=== PATIENT | male | born 2000 | race Hispanic/Latino ===

== ENCOUNTER 2024-03-03 11:07 | Emergency (ER) | payer OTHER ==
[2024-03-03] MEDS ORDERED: ALBUTEROL 2.5 MG/3 ML NEB SOL ONE (11:50)
[2024-03-03] MEDS ORDERED: IPRATROPIUM BROM 0.5MG/2.5ML ONE (11:50)
[2024-03-03] MEDS ORDERED: predniSONE 20 MG TAB ONE (11:51)
[2024-03-03] MEDS ORDERED: METHYLPREDNISOLONE 125 MG INJ ONE (11:51)
[2024-03-03] MEDS ORDERED: FAMOTIDINE 20 MG/2 ML VIAL IV ONE (11:52)
[2024-03-03] MEDS ORDERED: NA CHLORIDE 0.9% 1,000 ML ONE (11:52)
[2024-03-03] MEDS ORDERED: DIPHENHYDRAMINE 50 MG/ML VIAL ONE (11:52)
[2024-03-03 12:14] LABS: Absolute Lymphocytes (CBC) 0.9 K/uL (0.7-4.9); Absolute Monocytes 0.7 K/uL (0.1-1.3); Absolute Neutrophil 17.6 K/uL (1.8-8.0); Basophils % 0.2 % (0-1.3); Hematocrit 40.5 % (39.6-49.0); Hemoglobin 13.5 g/dL (13.6-17.9); Lymphocytes % 4.5 % (15.3-44.8); MCH 29.1 pg (27.0-35.0); MCHC 33.3 g/dL (32.0-36.0); MCV 87.3 fL (80-100); MPV 7.7 fL (7.6-11.3); Monocytes % 3.4 % (3.3-12.3); Neutrophils % 91.9 % (41.7-73.7); Platelets 349 thou/uL (152-406); RBC Red Blood Cell Count 4.64 M/uL (4.33-5.43); Red Cell Distribution Width 13.6 % (12.1-15.2)
[2024-03-03 12:35] LABS: ALT/SGPT 18 U/L (16-61); Albumin 3.6 g/dL (3.4-5.0); Albumin/Globulin Ratio 0.9 (1.1-1.8); Alkaline Phosphatase 73 U/L (45-117); Anion Gap 9.5 mEq/L (5.0-15.0); BUN Blood Urea Nitrogen 13 mg/dL (7-18); Bicarbonate 27 mEq/L (21-32); Bilirubin Total 0.6 mg/dL (0.2-1.0); Globulin 3.9 g/dL (2.3-3.5); Glomerular Filtration Rate 126 ml/min (=/>90); Glucose Level 108 mg/dL (74-106); Potassium 3.5 mEq/L (3.5-5.1); Protein, Total 7.5 g/dL (6.4-8.2); Sodium Level 137 mEq/L (136-145)
[2024-03-03 12:36] LABS: AST/SGOT < 10 U/L (15-37)
[2024-03-03 13:11] LABS: Band Neutrophils 1 % (0-1); Differential Total Cells Count 100; Lymphocytes 4 % (15-42); Monocytes 2 % (0-10); Segmented Neutrophils 92 % (40-80)
[2024-03-03 13:12] LABS: Atypical Lymphocytes 1 %; Blood Morphology Comment NOT SEEN (NOT SEEN); Platelet Estimate ADEQ
--- NOTE | 2024-03-03 13:59 | ER ---
Nurse's Notes [facility] Name: Jonathon Donnelly Age: 23 yrs Sex: Male : 2000 Arrival Date: 03/03/2024 Time: 11:07 Bed 9 Private MD: Diagnosis: Urticaria, unspecified;Idiopathic urticaria;Allergic urticaria;Elevated white blood cell count Presentation: 03/03 11:19 Chief complaint: Patient states: Dealing with allergic reaction since night. ll1 Seen at Urgent Care twice, keeps returning even with medications. Coronavirus screen: Client denies travel out of the [place] in the last 14 days. At this time, the client does not indicate any symptoms associated with coronavirus-19. Ebola Screen: Patient denies travel to an Ebola-affected area in the 21 days before illness onset. Onset: The symptoms/episode began/occurred last week. Anaphylaxis evaluation, no signs or symptoms of anaphylaxis were noted. Initial Sepsis Screen: Does the patient meet any 2 criteria? No. Patient's initial sepsis screen is negative. Does the patient have a suspected source of infection? No. Patient's initial sepsis screen is negative. Risk Assessment: Do you want to hurt yourself or someone else? Patient reports no desire to harm self or others. Onset of symptoms was February 26, 2024. 11:19 Method Of Arrival: Ambulatory 1 11:19 Acuity: DEISI 3 ll1 Triage Assessment: 11:19 General: Appears uncomfortable, Behavior is calm, cooperative, appropriate for age. ll1 Pain: Denies pain. EENT: Reports throat closing off/on, none now. Derm: Reports rash with itching to body off/on. Historical: - Allergies: 11:17 No Known Allergies; ll1 - PMHx: 11:17 Hypertensive disorder; ll1 - PSHx: 11:17 wisdom teeth; ll1 - Immunization history:: Adult Immunizations up to date. - Infectious Disease History:: Denies. - Social history:: Smoking status: Patient denies any tobacco usage or history of. Screenin:16 [facility] ED Fall Risk Assessment (Adult) History of falling in the last 3 months, hb including since admission No falls in past 3 months (0 pts) Confusion or Disorientation No (0 pts) Intoxicated or Sedated No (0 pts) Impaired Gait No (0 pts) Mobility Assist Device Used No (0 pt) Altered Elimination No (0 pt) Score/Fall Risk Level 0 - 2 = Low Risk Oriented to surroundings, Maintained a safe environment, Educated pt \T\ family on fall prevention, incl call for assistance when getting out of bed. Abuse screen: Denies threats or abuse. Denies injuries from another. Nutritional screening: No deficits noted. Tuberculosis screening: No symptoms or risk factors identified. Assessment: 12:15 General: Appears in no apparent distress. Behavior is calm, cooperative. Pain: Pain hb currently is 5 out of 10 on a pain scale. Neuro: Level of Consciousness is awake, alert, obeys commands, Oriented to person, place, time, situation. Cardiovascular: Patient's skin is warm and dry. Respiratory: Airway is patent Respiratory effort is even, unlabored, Respiratory pattern is regular, symmetrical. GI: No signs and/or symptoms were reported involving the gastrointestinal system. : No signs and/or symptoms were reported regarding the genitourinary system. EENT: Reports pain when swallowing. Derm: Skin is pink, warm \T\ dry. Rash noted that is diffuse hives. 13:35 Reassessment: No changes from previously documented assessment. Patient and/or family ll1 updated on plan of care and expected duration. Pain level reassessed. Patient is alert/active/playful, equal unlabored respirations, skin warm/dry/pink. Vital Signs: 11:19 BP 132 / 91; Pulse 116; Resp 17; Temp 97.4; Pulse Ox 99% ; Weight 86.18 kg; Height 5 ll1 ft. 11 in. ; Pain 6/10; 14:15 BP 122 / 59; Pulse 83; Resp 16; Pulse Ox 99% ; Pain 0/10; ll1 11:19 Body Mass Index 26.50 (86.18 kg, 180.34 cm) ll1 11:19 Pain Scale: Adult ll1 14:15 Pain Scale: Adult ll1 ED Course: 11:11 Patient arrived in ED. mg5 11:11 Floyd Oakes MD is Attending Physician. rn 11:17 Arm band placed on. ll1 11:18 Attending Physician role handed off by Floyd Oakes MD rn 11:18 Reji Bowen MD is Attending Physician. rn 11:20 Triage completed. ll1 12:01 Patient placed in an exam room, on a stretcher. ll1 12:10 Inserted saline lock: 20 gauge in right antecubital area, using aseptic technique. hb Blood collected. Flushed with 10 mL NS. 12:14 Comprehensive Metabolic Panel Sent. hb 12:14 CBC with Diff Sent. hb 12:16 Patient has correct armband on for positive identification. Provided Education on: hb tests, result times . 12:16 No provider procedures requiring assistance completed. hb 13:31 Jennifer Williamson, AAMIR is Primary Nurse. ll1 13:56 Sameer Leon MD is Referral Physician. migdalia 14:17 IV discontinued, intact, bleeding controlled, No redness/swelling at site. Pressure ll1 dressing applied. Administered Medications: 12:14 Drug: NS 0.9% IV 1000 ml IV at 1000 ml once; to be given as a bolus over 60 minutes hb Route: IV; Rate: 1000 ml; Site: right antecubital; 13:35 Follow up: Response: No adverse reaction; IV Status: Completed infusion; IV Intake: ll1 1000ml 12:14 Drug: MethylPrednisoLONE IVP 125 mg IVP once Route: IVP; Site: right antecubital; hb 13:35 Follow up: Response: No adverse reaction ll1 12:14 Drug: predniSONE PO 60 mg PO once Route: PO; hb 13:34 Follow up: Response: No adverse reaction ll1 12:14 Drug: diphenhydrAMINE IVP 50 mg IVP once Route: IVP; Site: right antecubital; hb 13:34 Follow up: Response: No adverse reaction; RASS: Alert and Calm (0) ll1 12:14 Drug: Famotidine IVP 40 mg IVP once; dilute with 10 mL 0.9% NaCl; give over 2 minutes hb Route: IVP; Site: right antecubital; 13:34 Follow up: Response: No adverse reaction ll1 12:14 Drug: Albuterol Inhalation 5 mg Inhalation once Route: Inhalation; hb 13:34 Follow up: Response: No adverse reaction ll1 12:14 Drug: Ipratropium Inhalation Aerosol 0.5 mg Inhalation once Route: Inhalation; hb 13:34 Follow up: Response: No adverse reaction ll1 Medication: 12:16 VIS not applicable for this client. hb Intake: 13:35 IV: 1000ml; Total: 1000ml. ll1 Outcome: 13:58 Discharge ordered by . migdalia 14:17 Patient left the ED. ll1 14:17 Discharged to home ambulatory, 1 14:17 Condition: stable 14:17 Discharge instructions given to patient, family, Instructed on discharge instructions, follow up and referral plans. medication usage, Demonstrated understanding of instructions, follow-up care, medications, Prescriptions given X 4, Signatures: Reji Bowen MD MD cha Nieto, Roman, MD MD rn Baxter, Heather, RN RN hb Lewis, Lynsay, RN RN [facility] Nadia Bernal mg5
--- NOTE | 2024-03-03 13:59 | EDPHYS ---
Physician Documentation [facility] Name: Jonathon Donnelly Age: 23 yrs Sex: Male : 2000 Arrival Date: 03/03/2024 Time: 11:07 Bed 9 Private MD: ED Physician Reji Bowen HPI: 03/03 13:42 This 23 yrs old Male presents to ER via Ambulatory with complaints of Allergic migdalia Reaction. 13:42 The patient presents with difficulty swallowing, diffuse swelling, runny nose. Onset: migdalia The symptoms/episode began/occurred just prior to arrival. Associated signs and symptoms: Pertinent positives: rash, swelling. Possible causes: The patient has no known obvious cause for the symptoms. At home the patient or guardian has treated the symptoms with Benadryl. Severity of symptoms: At their worst the symptoms were moderate in the emergency department the symptoms are unchanged. The patient has experienced similar episodes in the past, multiple times. Historical: - Allergies: 11:17 No Known Allergies; ll1 - PMHx: 11:17 Hypertensive disorder; ll1 - PSHx: 11:17 wisdom teeth; ll1 - Immunization history:: Adult Immunizations up to date. - Infectious Disease History:: Denies. - Social history:: Smoking status: Patient denies any tobacco usage or history of. ROS: 13:44 Constitutional: Negative for fever, chills, and weight loss, Eyes: Negative for injury, migdalia pain, redness, and discharge, ENT: Negative for injury, pain, and discharge, Neck: Negative for injury, pain, and swelling, Cardiovascular: Negative for chest pain, palpitations, and edema, Respiratory: Negative for shortness of breath, cough, wheezing, and pleuritic chest pain, Abdomen/GI: Negative for abdominal pain, nausea, vomiting, diarrhea, and constipation, Back: Negative for injury and pain, : Negative for injury, bleeding, discharge, and swelling, MS/Extremity: Negative for injury and deformity, Neuro: Negative for headache, weakness, numbness, tingling, and seizure, Psych: Negative for depression, anxiety, suicide ideation, homicidal ideation, and hallucinations, Allergy/Immunology: Negative for hives, rash, and allergies, Endocrine: Negative for neck swelling, polydipsia, polyuria, polyphagia, and marked weight changes, Hematologic/Lymphatic: Negative for swollen nodes, abnormal bleeding, and unusual bruising, 13:44 Skin: Positive for rash, swelling, Exam: 13:44 Constitutional: This is a well developed, well nourished patient who is awake, alert, migdalia and in no acute distress. Head/Face: Normocephalic, atraumatic. Eyes: Pupils equal round and reactive to light, extra-ocular motions intact. Lids and lashes normal. Conjunctiva and sclera are non-icteric and not injected. Cornea within normal limits. Periorbital areas with no swelling, redness, or edema. ENT: Nares patent. No nasal discharge, no septal abnormalities noted. Tympanic membranes are normal and external auditory canals are clear. Oropharynx with no redness, swelling, or masses, exudates, or evidence of obstruction, uvula midline. Mucous membranes moist. Neck: Trachea midline, no thyromegaly or masses palpated, and no cervical lymphadenopathy. Supple, full range of motion without nuchal rigidity, or vertebral point tenderness. No Meningismus. Chest/axilla: Normal chest wall appearance and motion. Nontender with no deformity. No lesions are appreciated. Cardiovascular: Regular rate and rhythm with a normal S1 and S2. No gallops, murmurs, or rubs. Normal PMI, no JVD. No pulse deficits. Respiratory: Lungs have equal breath sounds bilaterally, clear to auscultation and percussion. No rales, rhonchi or wheezes noted. No increased work of breathing, no retractions or nasal flaring. Abdomen/GI: Soft, non-tender, with normal bowel sounds. No distension or tympany. No guarding or rebound. No evidence of tenderness throughout. Back: No spinal tenderness. No costovertebral tenderness. Full range of motion. Male : Normal genitalia with no discharge or lesions. MS/ Extremity: Pulses equal, no cyanosis. Neurovascular intact. Full, normal range of motion. Neuro: Awake and alert, GCS 15, oriented to person, place, time, and situation. Cranial nerves II-XII grossly intact. Motor strength 5/5 in all extremities. Sensory grossly intact. Cerebellar exam normal. Normal gait. Psych: Awake, alert, with orientation to person, place and time. Behavior, mood, and affect are within normal limits. 13:44 ENT: TM's: are normal, Mouth: is normal, no abscess, no drooling, no injury, no laceration, no lesion(s), (-) tongue elevation (-) trismus no ulcerations, no gum abnomalities, no lip abnormalities, no mucosal abnormalities, no tongue abnormalities, no acute changes, Posterior pharynx: Airway: normal, no evidence of obstruction, Tonsils: are normal in appearance, Uvula: normal, swelling, is not appreciated, erythema, is not appreciated, exudate, is not appreciated, peritonsillar mass, is not appreciated, 13:44 Skin: and is diffusely located, Vital Signs: 11:19 BP 132 / 91; Pulse 116; Resp 17; Temp 97.4; Pulse Ox 99% ; Weight 86.18 kg; Height 5 ll1 ft. 11 in. ; Pain 6/10; 14:15 BP 122 / 59; Pulse 83; Resp 16; Pulse Ox 99% ; Pain 0/10; ll1 11:19 Body Mass Index 26.50 (86.18 kg, 180.34 cm) ll1 11:19 Pain Scale: Adult ll1 14:15 Pain Scale: Adult ll1 MDM: 11:11 Medical Screening Exam initiated rn 13:47 Differential diagnosis: allergic reaction, anaphylaxis, angioedema, foreign body or migdalia airway obstruction Hereditary Angioedema Mastocystosis non IgE mediated drug reaction Status Asthmaticus urticaria, Vasovagal Reactions Vocal Cord Dysfunction. Data reviewed: vital signs, nurses notes, lab test result(s), radiologic studies, plain films. Consideration of Admission/Observation Escalation of care including admission/observation considered. I considered the following discharge prescriptions or medication management in the emergency department Medications were administered in the Emergency Department. See MAR. Test considered but Not performed: X-ray: no cxr. Historians other than the Patient: Parent: mom well informed. Care significantly affected by the following chronic conditions: Hypertension. Counseling: I had a detailed discussion with the patient and/or guardian regarding the historical points, exam findings, and any diagnostic results supporting the discharge/admit diagnosis, lab results. 03/03 11:21 Order name: CBC with Diff; Complete Time: 13:47 migdalia 03/03 11:21 Order name: Comprehensive Metabolic Panel; Complete Time: 13:47 migdalia 03/03 12:18 Order name: Manual Differential; Complete Time: 13:47 EDMS 03/03 12:03 Order name: IV Start; Complete Time: 12:03 ll1 Administered Medications: 12:14 Drug: NS 0.9% IV 1000 ml IV at 1000 ml once; to be given as a bolus over 60 minutes hb Route: IV; Rate: 1000 ml; Site: right antecubital; 13:35 Follow up: Response: No adverse reaction; IV Status: Completed infusion; IV Intake: ll1 1000ml 12:14 Drug: MethylPrednisoLONE IVP 125 mg IVP once Route: IVP; Site: right antecubital; hb 13:35 Follow up: Response: No adverse reaction ll1 12:14 Drug: predniSONE PO 60 mg PO once Route: PO; hb 13:34 Follow up: Response: No adverse reaction ll1 12:14 Drug: diphenhydrAMINE IVP 50 mg IVP once Route: IVP; Site: right antecubital; hb 13:34 Follow up: Response: No adverse reaction; RASS: Alert and Calm (0) ll1 12:14 Drug: Famotidine IVP 40 mg IVP once; dilute with 10 mL 0.9% NaCl; give over 2 minutes hb Route: IVP; Site: right antecubital; 13:34 Follow up: Response: No adverse reaction ll1 12:14 Drug: Albuterol Inhalation 5 mg Inhalation once Route: Inhalation; hb 13:34 Follow up: Response: No adverse reaction ll1 12:14 Drug: Ipratropium Inhalation Aerosol 0.5 mg Inhalation once Route: Inhalation; hb 13:34 Follow up: Response: No adverse reaction ll1 Disposition Summary: 03/03/24 13:58 Discharge Ordered Notes: Location: Home migdalia Problem: new migdalia Symptoms: have improved migdalia Condition: Stable migdalia Diagnosis - Urticaria, unspecified migdalia - Idiopathic urticaria migdalia - Allergic urticaria migdalia - Elevated white blood cell count migdalia Followup: migdalia - With: Private Physician - When: 2 - 3 days - Reason: Recheck today's complaints, Continuance of care, Re-evaluation by your physician Followup: migdalia - With: Sameer Leon MD - When: 2 - 3 days - Reason: Recheck today's complaints, Re-evaluation by your physician Discharge Instructions: - Discharge Summary Sheet migdalia - Hives migdalia - Rash, Adult migdalia - Rash, Adult, [id number] migdalia - Hives, [id number] migdalia Forms: - Medication Reconciliation Form migdalia - Antibiotic Education migdalia - Prescription Opioid Use migdalia - Patient Portal Instructions [facility] - Leadership Thank You Letter [facility] Prescriptions: - EpiPen 0.3 mg/0.3 mL Injection Auto-Injector - administer 0.3 milliliter INTRAMUSCULAR route once as a single dose; 1 Pack; migdalia Refills: 0, Product Selection Permitted - Benadryl 25 mg Oral Capsule - take 1 capsule ORAL route every 6 hours As needed; 30 tablet; Refills: 0, [facility] Product Selection Permitted - Pepcid 20 mg Oral Tablet - take 1 tablet ORAL route every 12 hours for 10 days; 20 tablet; Refills: 0, [facility] Product Selection Permitted - Prednisone 20 mg Oral Tablet - take 2 tablets ORAL route once daily for 5 days; 10 tablet; Refills: 0, Product [facility] Selection Permitted Signatures: Dispatcher [employer] Reji Curiel MD MD cha Nieto, Roman, MD MD rn Baxter, Heather, RN RN Jennifer Williamson RN RN ll1
[2024-03-03 16:28] VITALS: BP 132/91; TEMP 97.4; O2SAT 99
== END 2024-03-03 14:17 | disposition home or self-care (01) ==
LOC: ER 11:07
DX: L50.1 Idiopathic urticaria (principal); L50.0 Allergic urticaria; D72.829 Elevated white blood cell count, unspecified
CPT/HCPCS: 96361; 85025; 36415; 80053; 96375; 96374; 99285; J7512; J1200; J7613; J7644; J2919; J7030